=== PATIENT | female | born 1960 | race Caucasian/White ===

== ENCOUNTER → 2019-02-24 | Outpatient (CLI) | payer OTHER ==
[~2019-02-24] MED LIST: ALBU90OI INH; CARB150 PO; FLUSAL2505 INH; GABA800 PO; NEUPRO TD; OXYACE5T PO
[2019-03-02 11:07] LABS: M-SPIKE, % Not Observed % (Not Observed); PROTEIN,TOTAL,URINE 11.4 mg/dL (Not Estab.)
== END | disposition home or self-care (01) ==
LOC: LAB 13:36 → LAB SHORT 13:36
PROVIDERS: Internal Medicine
DX: R79.9 Abnormal finding of blood chemistry, unspecified (principal)
CPT/HCPCS: 81050; 84156; 84166